=== PATIENT | female | born 1980 | race Caucasian/White ===

== ENCOUNTER 2018-08-18 23:36 | Inpatient (IN) | payer BC, OTHER ==
[~2018-08-18] VITALS: Ht 160 cm; Wt 88.1 kg
[2018-08-18 23:45] VITALS: BP 136/80
[2018-08-19] VITALS (22 sets, daily range): BP systolic 90–140; BP diastolic 57–90
[2018-08-19] MEDS ORDERED: D5 LR IV SOLUTION 1,000 ML IV SCH (00:03)
[2018-08-19 00:27] LABS: BASOPHILS % (AUTO) 0 % (0-10); EOSINOPHILS # (AUTO) 0.2 10^3/uL (0.0-0.3); EOSINOPHILS % (AUTO) 2 % (0-10); HEMATOCRIT 37 % (35-52); HEMOGLOBIN 12.7 G/DL (11.5-16.0); LYMPHOCYTES # (AUTO) 1.7 X 10^3 (1.0-4.0); LYMPHOCYTES % (AUTO) 20 % (12-44); MEAN CORPUSCULAR HEMOGLOBIN 31 PG (25-34); MEAN CORPUSCULAR HGB CONC 34 G/DL (32-36); MEAN CORPUSCULAR VOLUME 91 FL (80-99); MEAN PLATELET VOLUME 11.2 FL (7.4-10.4); MONOCYTES # (AUTO) 0.7 X 10^3 (0.0-1.0); MONOCYTES % (AUTO) 8 % (0-12); NEUTROPHILS # (AUTO) 5.9 X 10^3 (1.8-7.8); NEUTROPHILS % (AUTO) 70 % (42-75); PLATELET COUNT 204 10^3/uL (130-400); RED BLOOD COUNT 4.04 10^6/uL (4.35-5.85); RED CELL DISTRIBUTION WIDTH 14.9 % (10.0-14.5); WHITE BLOOD COUNT 8.5 10^3/uL (4.3-11.0)
[2018-08-19] MEDS ORDERED: D5 LR IV SOLUTION 1,000 ML IV ONE (00:41)
[2018-08-19] MEDS ORDERED: LACTATED RINGERS 1,000 ML IV ONE ×2 (01:14→02:53)
[2018-08-19] MEDS ORDERED: SUFENTA 0.6MCG/ML BUPIVA 0.125 100 ML ONE (01:58)
[2018-08-19] MEDS ORDERED: BUPIVACAINE 0.5% 30 ML (SENSORCAINE) VIAL ONE (02:04)
[2018-08-19] MEDS ORDERED: fentaNYL INJECTION 100 MCG/2 ML AMP ONE (02:05)
[2018-08-19] MEDS ORDERED: 0.9% SODIUM CHLORIDE PF INJ 20 ML VIAL ONE (02:05)
[2018-08-19] MEDS ORDERED: EPIDURAL (SUFENTA 0.6MCG/ML BUPIVA 0.125%) 100 ML BAG EPI SCH (03:00)
[2018-08-19] MEDS ORDERED: NALOXONE 0.4 MG/ML 1 ML (NARCAN) VIAL IV PRN (03:00)
[2018-08-19] MEDS ORDERED: CATHETER FLUSH 10 ML SYR IV PRN (03:00)
[2018-08-19] MEDS ORDERED: CATHETER FLUSH 10 ML SYR IV SCH (06:00)
[2018-08-19] MEDS ORDERED: OXYTOCIN/NORMAL SALINE 500 ML IV ONE (06:56)
[2018-08-19] MEDS ORDERED: LIDOCAINE/EPI 2% 1:200,00 (XYLOCAINE) 10 ML VIAL ONE (07:02)
[2018-08-19] MEDS ORDERED: FLU QUADRIvalent (5+ YOA) 2018-2019 (AFLURIA) 0.5 ML IM ONE (07:15)
[2018-08-19] MEDS ORDERED: OXYTOCIN/NORMAL SALINE 500 ML IV SCH (07:36)
--- NOTE | 2018-08-19 07:36 | History & Physical ---
History and Physical Date Seen by Provider: Aug 19, 2018 Time Seen by Provider: 07:34 This patient is a 37-year-old white female with an EDC of 10 [phone] putting her at 38 weeks gestation. She presented with complaint of spontaneous rupture membranes and she was 3 cm dilated and valente with some regularity a GBS culture was negative. She had no problems with his to date. She was admitted and managed expectantly. Allergies are to Bactrim which causes a rash Medications are levothyroxine vitamins Medical social and surgical histories are per the antepartum record HEENT exam is normal Neck is supple no lymphadenopathy no thyromegaly Abdomen is gravid soft nontender nondistended Extremities show clubbing cyanosis. There is no Homans sign. Exam per the labor and delivery nurse on admission was a cervix that was 3 for similar dilated basically 100 percent effaced -2 station vertex presentation was gross rupture membranes. Laboratory Tests 08/19/18 00:10 Assessment and plan term at 38 weeks gestation with spontaneous rupture membranes and active labor. Patient is managed expectantly. 38 week gestation with spontaneous rupture membranes and active labor Allergies and Home Medications Allergies Coded Allergies: Sulfa (Sulfonamide Antibiotics) (Verified Allergy, Intermediate, rash, 08/19/18) Patient Home Medication List Home Medication List Reviewed: Yes Clinical Quality Measures DVT/VTE Risk/Contraindication: Risk Factor Score Per Nursin RFS Level Per Nursing on Admit: 1=Low/No VTE PPX BECKY MORENO MD Aug 19, 2018 7:36 am
[2018-08-19] MEDS ORDERED: IBUP-1780 PO (07:41)
[2018-08-19] MEDS ORDERED: DOCU100C37 PO (07:41)
[2018-08-19] MEDS ORDERED: OXYC1TAB87 PO (07:41)
--- NOTE | 2018-08-19 07:42 | Discharge Instructions ---
Discharge Instructions Discharge Medications New, Converted or Re-Newed RX: RX on Chart Patient Instructions Patient Instructions: As directed Return to The Hospital For: DIRECTED Activity & Diet Discharge Diet: No Restrictions Activity as Tolerated: No Orders-Post D/C & Referrals Follow Up Appt: Call to make follow up appt. for patient in 4 weeks. Activity Per routine post vaginal delivery instructions. Diet as tolerated Patient may shower or tub bathe as desired. BECKY MORENO MD Aug 19, 2018 7:42 am
[2018-08-19] MEDS ORDERED: TETANUS,DIPTH,PERTUSS P/F (BOOSTRIX) 0.5 ML VIAL IM ONE (07:45)
[2018-08-19] MEDS ORDERED: ONDANSETRON 4 MG/2 ML (SDV) Z0FRAN IVP PRN (07:45)
[2018-08-19] MEDS ORDERED: oxyCODONE/APAP 5/325MG (PERCOCET 5) TABLET PO PRN (07:45)
[2018-08-19] MEDS ORDERED: MEASLES,MUMPS,RUBELLA 1 EA INJ SC ONE (07:45)
[2018-08-19] MEDS ORDERED: BENZOCAINE/MENTHOL (DERMOPLAST) 56 ML CAN TP PRN (07:45)
[2018-08-19] MEDS: KETOROLAC 30 MG/ML VIAL IV SCH ×2 (08:59→19:55)
--- NOTE | 2018-08-19 09:05 | Anesthesia-General Post-Op ---
General Patient Condition Mental Status/LOC: Same as Preop Cardiovascular: Satisfactory Nausea/Vomiting: Absent Respiratory: Satisfactory Pain: Controlled Complications: Absent Post Op Complications Complications None Follow Up Care/Instructions Patient Instructions None needed. Anesthesia/Patient Condition Patient Condition Patient is doing well, no complaints, stable vital signs, no apparent adverse anesthesia problems. No complications reported per nursing. LALITA BULLOCK CRNA Aug 19, 2018 09:05
--- NOTE | 2018-08-19 12:17 | OPERATIVE REPORT ---
DATE OF SERVICE: 08/19/2018 DELIVERY NOTE The patient delivered by term spontaneous vaginal delivery at 38 weeks gestation a viable female infant with Apgars of 9 and 9 at 1 and 5 minutes respectively, a weight of 6 pounds and 13 ounces and a time of 07:19. Delivery was accomplished over an intact perineum under epidural analgesia. The infant was bulb suctioned on delivery of the head and again on completion of delivery. Umbilical cord was doubly clamped, father cut the cord, the baby was passed to mom's abdomen. The placenta delivered spontaneously. It was a very linear placenta with a large accessory lobe, but did have a 3-vessel cord. It was sent to pathology for permanent section. The cervix, vagina, rectum and perineum were examined and found intact. Estimated blood loss for delivery was around 100 to 150 mL. Sponge and needle counts were correct. The patient remained in the LDR for recovery and the baby remained with the mom. Job ID: [id number] DocumentID: [id number] Dictated Date: 08/19/2018 07:33:27 Data Processing Specialist Date: 08/19/2018 12:17:10 Dictated By: BECKY MORENO MD MTDD
[2018-08-19] MEDS: DOCUSATE SODIUM 100 MG (COLACE) CAP PO SCH ×2 (15:39→21:49)
[2018-08-19] MEDS ORDERED: IBUPROFEN 800 MG (MOTRIN) TAB PO ONE ×2 (16:07→21:16)
[2018-08-19] MEDS: IBUPROFEN 800 MG (MOTRIN) TAB PO SCH ×2 (16:15→21:49)
[2018-08-20 00:55] VITALS: BP 99/64
[2018-08-20 04:30] VITALS: BP 92/55
[2018-08-20] MEDS: IBUPROFEN 800 MG (MOTRIN) TAB PO SCH ×2 (04:30→09:47)
--- NOTE | 2018-08-20 08:11 | Progress Note-Standard ---
Standard Progress Note Progress Notes/Assess & Plan Date Seen by a Provider: Aug 20, 2018 Time Seen by a Provider: 08:06 Progress/Assessment & Plan This patient is without complaint she is ambulating, voiding, tolerating oral intake well has good pain control and is requesting discharge home. Vital Signs 08/20/18 04:30 Temp 96.8 Pulse 67 Resp 18 B/P (MAP) 92/55 (67) Pulse Ox 98 O2 Delivery Room Air Vital signs are stable. Patient is afebrile. Fundus is firm below the umbilicus and nontender. Extremities show no clubbing cyanosis. There is no Homans sign. There is minimal pretibial pitting edema. Assessment and plan day number 1 status post term spontaneous vaginal delivery at 38 weeks gestation doing well. Patient is requesting discharge home and will be allowed discharge home. Final Diagnosis tsvd AT 38 WEEKS BECKY MORENO MD Aug 20, 2018 8:11 am
[2018-08-20 08:15] VITALS: BP 100/72
[2018-08-20] MEDS ORDERED: TETANUS,DIPTH,PERTUSS P/F (BOOSTRIX) 0.5 ML VIAL IM ONE (08:23)
[2018-08-20] MEDS: DOCUSATE SODIUM 100 MG (COLACE) CAP PO SCH (08:29)
[2018-08-20 14:10] VITALS: BP 100/72
== END 2018-08-20 14:10 | disposition home or self-care (01) | DRG 807 ==
LOC: WSo 23:36 → LDRP 23:37 → WSo 23:59 → LDRP 08-19
PROVIDERS: ADMIT Obstetrics & Gynecology; ATTEND Obstetrics & Gynecology
PROC: 10E0XZZ Delivery of Products of Conception, External Approach (ICD-10-PCS; principal; 2018-08-19)
DX: O99.283 Endocrine, nutritional and metabolic diseases complicating pregnancy, third trimester (principal); E03.9 Hypothyroidism, unspecified; Z3A.38 38 weeks gestation of pregnancy; Z37.0 Single live birth; Z23 Encounter for immunization
CPT/HCPCS: 36415; 85025; 86850; 86900; 86901; 88307; 90715; 99212

== ENCOUNTER → 2021-01-04 | Outpatient (CLI) | payer BC ==
[~2021-01-04] MED LIST: DOCU100C37 PO; IBUP-1780 PO; OXYC1TAB87 PO
--- NOTE | 2021-01-04 13:34 | Diagnostic Imaging Report ---
PROCEDURE: Pelvic complete, transabdominal and transvaginal sonogram. Limited pelvic doppler. TECHNIQUE: Multiple real-time grayscale images were obtained of the pelvis in various projections transabdominally and transvaginally. Limited pelvic duplex images were obtained. HISTORY: Left-sided pelvic pain. COMPARISON: None available. FINDINGS: Uterus: The uterus is anteverted and measures 9.2 x 4.1 x 5.5 cm. There is suggestion of a 2.3 cm intramural uterine fibroid anteriorly. Endometrium: The endometrium is normal in thickness and measures 0.5 cm. There is no fluid within the endometrial cavity. Adnexa: Both ovaries have a normal physiologic appearance. The right ovary measures 3.0 x 1.3 x 1.7 cm and the left ovary measures 2.1 x 0.9 x 1.6 cm. Appropriate Doppler flow is seen to both ovaries. Other: There is no free fluid within the pelvis. IMPRESSION: 1. Suggestion of a 2.3 cm anterior fundal intramural uterine fibroid. 2. Otherwise unremarkable pelvic ultrasound. Dictated by: Dictated on workstation # [id number]
== END ==
LOC: RAD 12:04
PROVIDERS: ATTEND Nurse Practitioner
DX: N94.89 Other specified conditions associated with female genital organs and menstrual cycle (principal)
CPT/HCPCS: 76830; 76856